=== PATIENT | female | born 1990 ===

== ENCOUNTER 2018-02-11 10:02 | Emergency (ER) | payer SELFPAY ==
[2018-02-11 10:05] VITALS: BMI 27.0
--- NOTE | 2018-02-11 10:28 | ED PDOC ---
HPI: General Adult Time Seen by Provider: 02/11/18 10:22 Chief Complaint (Nursing): Abnormal Skin Integrity Chief Complaint (Provider): rash History Per: Patient Additional Complaint(s): 28-year-old female with no past medical history presents with a painful rash to left flank region 3 days. Patient describes the rash is burning and itching. She denies fever or chills. No active drainage. PMD: [facility] Past Medical History Reviewed: Historical Data, Nursing Documentation, Vital Signs Vital Signs: Last Vital Signs Temp 98.9 F 02/11/18 10:21 Pulse 88 02/11/18 10:21 Resp 18 02/11/18 10:21 BP 118/81 02/11/18 10:21 Pulse Ox 97 02/11/18 10:28 - Medical History PMH: No Chronic Diseases - Family History Family History: States: No Known Family Hx - Living Arrangements Living Arrangements: With Family - Social History Current smoker - smoking cessation education provided: No Alcohol: None Drugs: Denies - Home Medications Home Medications: Ambulatory Orders Medication Instructions Recorded valACYclovir [Valtrex] 1 gm PO TID #21 tab 02/11/18 - Allergies Allergies/Adverse Reactions: Allergies Allergy/AdvReac Type Severity Reaction Status Date / Time No Known Allergies Allergy Verified 02/11/18 10:46 Review of Systems Constitutional: Negative for: Fever Skin: Positive for: Rash Physical Exam - Reviewed Nursing Documentation Reviewed: Yes Vital Signs Reviewed: Yes - Physical Exam Appears: Positive for: Well, Non-toxic, No Acute Distress Skin: Positive for: Normal Color, Rash (Vesicular rash noted to left flank region consistent with shingles) Cardiovascular/Chest: Positive for: Regular Rate, Rhythm Respiratory: Positive for: Normal Breath Sounds Neurologic/Psych: Positive for: Alert, Oriented - Laboratory Results Urine POC: Negative (Test was declined, patient is certain she is not ) - ECG O2 Sat by Pulse Oximetry: 97 Pulse Ox Interpretation: Normal Medical Decision Making Medical Decision Making: Impression: Shingles Plan: Patient given prescription for Valtrex and was advised to take NSAIDs for pain as needed. Patient was instructed to keep area clean and dry and to avoid any topical creams. Advise PMD or clinic follow-up in 2-3 days. Patient aware she can return any time to ED if acutely worse. Disposition - Clinical Impression Clinical Impression: Sergio Counseled Patient/Family Regarding: Diagnosis, Need For Followup, Rx Given - Disposition Referrals: [facility] [Outside] Disposition: Routine/Home Disposition Time: 10:53 Condition: STABLE Additional Instructions: Take prescription meds as directed. [id number] Tylenol or Advil for pain as needed. Keep area clean and dry. Do not apply any topical creams. Follow-up with clinic in 2-3 days or return any time if acutely worse. Prescriptions: valACYclovir [Valtrex] 1 gm PO TID #21 tab Instructions: Sergio (SUSY) Forms: [employer] ([place])
[2018-02-11 11:13] VITALS: BP 112/78; PULSE 78; RESP 19; TEMP 97; O2SAT 98
== END 2018-02-11 11:14 | disposition home or self-care (01) ==
LOC: H.ER 10:02
DX: B02.9 Zoster without complications (principal)